=== PATIENT | female | born 1980 | race Caucasian/White ===

== ENCOUNTER → 2022-01-18 | Outpatient (CLI) | payer BC ==
[~2022-01-18] MED LIST: FLUO40CA9 PO; FLUT9.9S16 BC; HYDR50TA PO; LEVO500T51 PO; METR500T PO; MONT10TA6 PO
--- NOTE | 2022-01-18 16:01 | DIREP ---
PROCEDURE:XRAY FOOT MIN 3 VWS-RT COMPARISON:None. INDICATIONS:M72.2 PLANTAR FASCIAL FIBROMATOSIS FINDINGS: BONES:No visible fracture. Large plantar and small Achilles calcaneal enthesophytes. Mild spurring along the posterior cuboid and malleoli. JOINTS:Normal. SOFT TISSUES:Normal. OTHER:No additional findings. CONCLUSION:Large plantar and tiny Achilles calcaneal spurs. No acute process. Dictated by: Farhat Lang M.D. on 01/18/2022 at 03:57 PM
== END | disposition home or self-care (01) ==
LOC: RAD 11:56
PROVIDERS: ATTEND Nurse Practitioner Family
DX: M77.8 Other enthesopathies, not elsewhere classified (principal); M72.2 Plantar fascial fibromatosis
CPT/HCPCS: 73630-RT

== ENCOUNTER → 2022-06-14 | Outpatient (CLI) | payer BC ==
[2022-06-14 12:37] LABS: BILIRUBIN,URINE NEGATIVE (NEGATIVE); UROBILINOGEN,URINE 0.2 E.U./dL (0.2)
== END | disposition home or self-care (01) ==
LOC: NPLAB 11:42
PROVIDERS: ATTEND Nurse Practitioner Family
DX: R30.0 Dysuria (principal)
CPT/HCPCS: 81003; 87086